=== PATIENT | male | born 1965 | race African-American/Black ===

== ENCOUNTER 2017-04-10 22:25 | Emergency (ER) | payer MEDICAID ==
[~2017-04-10] VITALS: Ht 190.5 cm; Wt 110.0 kg
[~2017-04-10 22:25] MED LIST: ACET-2178 PO; ASPI-1159 PO; COR12 PO; FURO-151 PO; LISI-186 PO
[2017-04-11] MEDS ORDERED: AZITHROMYCIN 500 MG TABLET PO NR (00:45)
[2017-04-11 01:17] VITALS: BP 149/99
== END 2017-04-11 01:22 | disposition home or self-care (01) ==
LOC: ER 22:25
DX: J18.9 Pneumonia, unspecified organism (principal); F19.10 Other psychoactive substance abuse, uncomplicated; I11.0 Hypertensive heart disease with heart failure; I50.9 Heart failure, unspecified; E11.9 Type 2 diabetes mellitus without complications; F12.10 Cannabis abuse, uncomplicated; E78.00 Pure hypercholesterolemia, unspecified; F17.200 Nicotine dependence, unspecified, uncomplicated; Z79.82 Long term (current) use of aspirin
CPT/HCPCS: 71045; 99283; Z7610